=== PATIENT | male | born 1970 | race Caucasian/White ===

== ENCOUNTER 2020-01-07 06:35 | Emergency (ER) | payer OTHER, SELFPAY ==
[2020-01-07 06:48] VITALS: BP 154/102; PULSE 110; RESP 16; TEMP 37; O2SAT 98; BMI 33.4
--- NOTE | 2020-01-07 06:49 | CT_ITS ---
PROCEDURE: CT ABDOMEN PELVIS WO CON CLINICAL INDICATION: kidney stone rule out Left flank pain COMPARISON: No exams were available for comparison TECHNIQUE: Axial images obtained with sagittal and coronal reformats. All CT scans at the facility use one or more dose reduction, viz: automated exposure control, ma/kV adjustment per patient size (including targeted exams where dose is matched to indication, i.e. head), or iterative reconstruction technique. FINDINGS: LOWER THORAX: No acute finding ABDOMEN & PELVIS: Post cholecystectomy. The liver has an unremarkable appearance. Mild nonspecific thickening of the distal esophagus. Vague decreased attenuation within the central aspect of the spleen possibly unopacified vessel. Nonemergent post enhanced exam may confirm. The adrenal glands and pancreas are unremarkable. There is mild left hydronephrosis with minimal prominence of the left ureter in very minimal stranding of the periureteral fat. There does appear to be a tiny stone at the left ureterovesical junction image 91 series 3 measuring approximately 2 mm. No stones evident within the urinary bladder. No renal calculi are identified No intestinal obstruction or free air. No evidence of appendicitis. There is some thickening of the transverse and descending colon which could be due to nondistention. Small diverticulum noted in the splenic flexure region IMPRESSION: 2 mm left ureterovesical junction stone with mild ectasia of the left renal collecting system Thickened appearance of the transverse and descending colon and sigmoid colon which could be due to nondistention or mild colitis Other nonacute findings as described above Dictated by: Shad Brooks MD 01/07/2020 07:37 Electronically signed by Shad Brooks MD in [place] 01/07/2020 07:37
[2020-01-07 06:56] LABS: Basophils % 0.2 % (0.1-2.0); Eosinophils # 0.1 K/mm3 (0.0-0.4); Eosinophils % 0.4 % (0.1-12.0); Hematocrit 49.4 % (42.0-52.0); Hemoglobin 16.9 g/dL (14.1-18.0); Lymphocytes # 0.8 K/mm3 (0.7-4.5); Lymphocytes % 6.3 % (10-50); Mean Corpuscular HGB Conc 34.3 g/dL (31.8-35.4); Mean Corpuscular Volume 90.2 fl (80-94); Mean Platelet Volume 7.2 fl (7.4-10.4); Monocytes # 0.6 K/mm3 (0.1-1.0); Monocytes % 4.5 % (1.7-9.3); Neutrophils # 11.8 K/mm3 (1.8-7.8); Neutrophils % 88.6 % (37.0-80.0); Platelet Count 249 K/mm3 (142-424); Red Blood Count 5.47 M/mm3 (4.60-6.20); Red Cell Distribution Width 13.2 % (11.5-17.5); White Blood Count 13.3 K/mm3 (4.8-10.8)
[2020-01-07 06:59] LABS: MANUAL DIFFERENTIAL MANUAL DIFFERENTIAL (MANUAL DIFF)
[2020-01-07 07:01] LABS: Chloride 106 mmol/L (98-107); Potassium 4.4 mmoL/L (3.5-5.1); Sodium 139 mmol/L (136-145)
[2020-01-07 07:04] LABS: Alanine Aminotransferase 22 U/L (12-78); Albumin Level 4.7 g/dl (3.5-5.0); Albumin/Globulin Ratio 1.4 (1.1-1.8); Alkaline Phosphatase 126 U/L (38-126); Amylase 71 U/L (30-110); Anion Gap 12.4 mEq/L (5-15); Aspartate Amino Transferase 25 U/L (17-59); Bilirubin,Total 0.9 mg/dl (0.2-1.3); Blood Urea Nitrogen 18 mg/dl (9-20); Calcium 9.3 mg/dl (8.4-10.2); Carbon Dioxide 25 mmol/L (22.0-30.0); Creatinine Clearance Estimated 84 mL/min (50-200); Estimated Glomerular Filt Rate 50 ml/min (>60); GFR (African American) 60 ML/MIN (>60); Globulin 3.3 g/dL (1.3-3.2); Glucose 124 mg/dl (74-100); Lipase 91 U/L (23-300)
[2020-01-07 07:07] LABS: Lymphocytes % 4 % (10-50); Monocytes % 5 % (2-9); Neutrophils % 88 % (42-76); Platelet Estimate Normal; RBC Morphology Normal; Total Cells Counted 100
[2020-01-07 07:24] LABS: Appearance,Urine CLEAR (Clear); Bilirubin,Urine Negative (Negative); Blood, Urine TRACE-L (Negative); Color,Urine YELLOW (Yellow); Glucose,Urine (UA) Negative (Negative); Ketones,Urine Negative (Negative); Leukocyte Esterase,Urine Negative (Negative); Microscopic, Urine URINE MICROSCOPIC (MICROSCOPIC); Nitrate,Urine Negative (Negative); PH,Urine 5.5 (5.0-8.5); Protein,Urine Negative (Negative); Specific Gravity, Urine 1.025 (1.005-1.030); Urobilinogen,Urine 0.2 EU/dl (0.2)
[2020-01-07 07:31] LABS: RBC,Urine Occasional #/hpf (0-3)
--- NOTE | 2020-01-07 08:15 | [facility].EDUROGM ---
ED Disposition Clinical Impression: Renal colic on left side Disposition: Home, Self-Care Condition on Discharge: Good Instructions: DI for Kidney Stones Additional Instructions: fluids and see pcp and urology for follow up Prescriptions: Ketorolac Tromethamine [Toradol 10mg tablet] 10 mg PO Q6H 5 Days #10 tab Prescription Printed Referrals: Dion Neri MD [Primary Care Provider] - - Critical Care Critical Care Time: No Attestation: On 01/07/20, the high probability of a clinically significant, sudden or life threatening deterioration of the following system(s) required my full and direct attention, intervention and personal management. The time I documented below is in addition to time spent performing reported procedures but includes the following listed in this critical care notation. Medical Decision Making - Medical Records Medical records reviewed: Yes: I reviewed the patient's medical records. - Hemant Inquiry Pt receiving controlled substance: No Vital Signs: 01/07/20 06:48 Temperature 98.6 F Temperature Source Oral Pulse Rate [Right Brachial] 110 H Respiratory Rate 16 Blood Pressure [Right Arm] 154/102 H Blood Pressure Mean [Right Arm] 119 Blood Pressure Source [Right Arm] Automatic Cuff Blood Pressure Position [Right Arm] Sitting 02 Sat by Pulse Oximetry 98 Oxygen Delivery Method Room Air - Lab Data Lab results reviewed: Yes: I reviewed the patient's lab results. Lab Results 01/07/20 06:49: WBC 13.3 H, RBC 5.47, Hgb 16.9, Hct 49.4, MCV 90.2, MCH 31.0, MCHC 34.3, RDW 13.2, Plt Count 249, MPV 7.2 L, Neut % (Auto) 88.6 H, Lymph % (Auto) 6.3 L, Hill % (Auto) 4.5, Eos % (Auto) 0.4, Baso % (Auto) 0.2, Neut # (Auto) 11.8 H, Lymph # (Auto) 0.8, Hill # (Auto) 0.6, Eos # (Auto) 0.1, Baso # (Auto) 0.0, Total Counted 100, Neutrophils % (Manual) 88 H, Band Neutrophils % 3.0, Lymphocytes % (Manual) 4 L, Monocytes % (Manual) 5, Platelet Estimate Normal, RBC Morphology Normal 01/07/20 06:49: Sodium 139, Potassium 4.4, Chloride 106, Carbon Dioxide 25, Anion Gap 12.4, BUN 18, Creatinine 1.50 H, Estimated Creat Clear 84, Estimated GFR 50 L, Est GFR ( Amer) 60, Glucose 124 H, Calcium 9.3, Total Bilirubin 0.9, AST 25, ALT 22, Alkaline Phosphatase 126, Total Protein 8.0, Albumin 4.7, Globulin 3.3 H, Albumin/Globulin Ratio 1.4, Amylase 71, Lipase 91 01/07/20 07:20: Urine Color Yellow, Urine Appearance Clear, Urine pH 5.5, Ur Specific Sibley 1.025, Urine Protein Negative, Urine Glucose (UA) Negative, Urine Ketones Negative, Urine Blood Trace-l, Urine Nitrate Negative, Urine Bilirubin Negative, Urine Urobilinogen 0.2, Ur Leukocyte Esterase Negative, Urine RBC Occasional, Urine WBC None, Ur Squamous Epith Cells None, Urine Bacteria None Result diagrams: 01/07/20 06:49 01/07/20 06:49 Orders (Tests/Meds): ED MEDICATIONS Generic Name Dose Route Start Last Admin Trade Name Freq PRN Reason Stop Dose Admin Sodium Chloride 1,000 mls @ 999 mls/hr 01/07/20 07:00 01/07/20 06:57 Sod Chlor 0.9% 1000ml Bag IV 01/07/20 08:00 999 mls/hr .Q1H1M KHANG Administration Tamsulosin HCl 0.4 mg 01/07/20 21:00 01/07/20 06:57 Flomax 0.4mg Capsule PO 02/06/20 20:59 0.4 mg HS KHANG Administration Discontinued Medications Generic Name Dose Route Start Last Admin Trade Name Freq PRN Reason Stop Dose Admin Ketorolac Tromethamine 30 mg 01/07/20 06:50 01/07/20 06:56 Toradol 30mg/Ml Vial IV 01/07/20 06:51 30 mg ONCE ONE Administration Ondansetron HCl 4 mg 01/07/20 06:50 01/07/20 06:57 Zofran 4mg/2ml Vial IV 01/07/20 06:51 4 mg ONCE ONE Administration - CT Data CT Scan: Abdomen, Pelvis Time Received: 08:[address] Reviewed: Yes: I have viewed the radiologist's interpretation Preliminary Findings: Abnormal (2 mm stone) Male Urogenital HPI - General Chief complaint: Urogenital-Male Stated complaint: Pain in left side,nausea Time Seen by Provider: 01/07/20 07:40 M
[2020-01-07 08:16] VITALS: BP 153/100; PULSE 59
[2020-01-07 08:29] VITALS: BP 159/83; PULSE 60; RESP 16; TEMP 36.6; O2SAT 98
== END 2020-01-07 08:31 | disposition home or self-care (01) ==
PROVIDERS: Emergency Provider Emergency Medicine; PCP Internal Medicine Adolescent Medicine
DX: N23 Unspecified renal colic (principal); Z87.442 Personal history of urinary calculi
CPT/HCPCS: 74176; 80053; 81001; 82150; 83690; 85007; 85025; 96365; 96375; 99283; J2405

== ENCOUNTER → 2022-10-28 11:43 | Outpatient (CLI) | payer BC, SELFPAY ==
--- NOTE | 2022-10-28 | XR_ITS ---
FINAL REPORT CLINICAL HISTORY: Hx kidney stones, Rt flank pain x 5-6 wks radiating to back. FINDINGS: AP PELVIS: A single view of the pelvis was obtained. There is no acute fracture or dislocation. Visualized joint spaces are normally aligned. Soft tissues are unremarkable. IMPRESSION: No acute process. Reviewed, Interpreted and Dictated by Ovi Zambrano III, MD Transcribed by Tung Santo [facility]henticated and [facility]
--- NOTE | 2022-10-28 | XR_ITS ---
FINAL REPORT CLINICAL HISTORY: Hx kidney stones, Rt flank pain x 5-6 wks radiating to back. FINDINGS: There is a nonobstructive bowel gas pattern. There are no abnormally dilated loops of small bowel. No abnormal calcification is identified. Postoperative changes are seen in the right upper quadrant. IMPRESSION: Nonobstructive bowel gas pattern. Reviewed, Interpreted and Dictated by Ovi Zambrano III, MD Transcribed by Tung Santo Authenticated and [facility]
== END ==
PROVIDERS: PCP Nurse Practitioner Family; Visit Provider Nurse Practitioner
DX: R10.9 Unspecified abdominal pain (principal)
CPT/HCPCS: 72170; 74018

== ENCOUNTER 2023-06-03 17:29 | Emergency (ER) | payer OTHER, BC, SELFPAY ==
--- NOTE | 2023-06-03 17:31 | XR_ITS ---
PROCEDURE INFORMATION: Exam: XR Right Knee Exam date and time: 06/03/2023 5:46 PM Age: 53 years old Clinical indication: Injury or trauma; Fall; Blunt trauma; Knee; Right TECHNIQUE: Imaging protocol: Radiologic exam of the right knee. Views: 3 views. COMPARISON: No relevant prior studies available. FINDINGS: Bones/joints: Small suprapatellar effusion Soft tissues: Radiopaque foreign body in the soft tissues superficial to the medial femoral condyle. IMPRESSION: 1. No evidence of acute osseous injury. 2. Small suprapatellar effusion.
[2023-06-03 18:40] VITALS: BP 142/90; PULSE 86; RESP 18; TEMP 36.8; O2SAT 98; BMI 33.4
--- NOTE | 2023-06-03 18:56 | EXP.UTC ---
Discharge Plan Disposition Patient Disposition: Home, Self-Care Condition: Good Prescriptions Prescriptions: No Action ipratropium-albuterol 0.5 mg-3 mg(2.5 mg base)/3 mL solution for nebulization 1 inh IH Q6H Patient Comments: INHALE CONTENTS OF 1 VIAL USING A NEBULIZER 3 TIMES EACH DAY NEEDED budesonide-formoterol 160-4.5 mcg/actuation HFA aerosol inhaler 1 puff IH Q6H Patient Comments: INHALE 2 PUFFS 2 TIMES EACH DAY ketorolac 10 MG tablet 10 mg PO Q6H 5 Days Qty: 10 0RF Referrals Follow up/Referrals: Flash Steven DO [Staff Physician] - See instructions (Call office for appointment) Darcie Aldana [Primary Care Provider] - See instructions Clinical Impressions Clinical Impression: Effusion of knee Qualifiers: Laterality: right Qualified Code(s): M25.461 - Effusion, right knee Instructions Patient Instructions: How to Use Crutches, DI for Knee Effusion, How to Use a Knee Immobilizer Discharge ED Provider: Mary Carmen Anderson [facility] General Stated complaint: WC fall 06/03, right knee pain Mode of Arrival: Ambulatory Source of Information: Patient Limitations: No Limitations Time Seen by Provider: 06/03/23 18:56 Description of Symptoms (Recalled from Triage Doc. by RN): PATIENT C/O RIGHT KNEE PAIN AFTER FALLING OFF OF A LADDER APPROX 3 FEET TODAY HEENT Symptoms (Recalled from RN notes): No Resp Symptoms (Recalled from RN notes): No Skin Symptoms (Recalled from RN notes): No MS Symptoms (Recalled from RN notes): Yes Functional Status (Recalled from RN notes): WNL History of Present Illness Provider Complaint: Patient states that he was on the ladder earlier and slipped and fell and landed on his right knee, hip and shoulder States that he is not hurting in his hip and shoulder but his knee is swollen and hurting when he moves it or puts weight on it so he came in to get it checked Related Data Home Medications Medication Instructions Recorded Confirmed budesonide-formoterol HFA 160 1 puff IH Q6H Breathing problems 01/07/20 01/07/20 mcg-4.5 mcg/actuation aerosol inhaler ipratropium 0.5 mg-albuterol 3 mg 1 inh IH Q6H Breathing problems 01/07/20 01/07/20 (2.5 mg base)/3 mL nebulization soln Previous Rx's Medication Instructions Recorded ketorolac 10 mg tablet 10 mg PO Q6H 5 days #10 tabs 01/07/20 Allergies Allergy/AdvReac Type Severity Reaction Status Date / Time aspirin Allergy Severe S-DIFF. Verified 01/07/20 06:51 BREATHING Sulfa (Sulfonamide Allergy Verified 06/03/23 18:51 Antibiotics) Worker's Comp Is this a Worker's Comp case?: No [facility] Disclaimer: The information contained in this section may have been updated after the patient was seen, as this information can be updated by other users. Medical History (Updated 06/03/23 @ 19:06 by Mary Carmen Anderson APRN) Anxiety Asthma COPD (chronic obstructive pulmonary disease) Hypertension Kidney stone Social History Smoking Status: Unknown if ever smoked alcohol intake: never current occupational status: employed Travel in the last 8 weeks: None ROS Obtained: Yes All systems reviewed & no additional complaints except as documented and Yes Systems reviewed as appropriate & no additional complaints except as documented Constitutional Constitutional: Reports system reviewed and no additional complaints, except as documented and Reports as per HPI Cardiovascular Cardiovascular: Reports system reviewed and no additional complaints, except as documented and Reports as per HPI Respiratory Respiratory: Reports system reviewed and no additional complaints, except as documented and Reports as per HPI Gastrointestinal Gastrointestingal: Reports system reviewed and no additional complaints, except as documented and as per HPI Musculoskeletal Musculoskeletal: Reports system reviewed and no additional complaints, except as documented and Reports as per HPI Comments: Pain and swe
[2023-06-03 19:10] VITALS: BP 142/90; PULSE 86; RESP 18; TEMP 36.8; O2SAT 98
== END 2023-06-03 19:16 | disposition home or self-care (01) ==
PROVIDERS: Emergency Provider Nurse Practitioner; PCP Nurse Practitioner Family
DX: M25.561 Pain in right knee (principal); M25.461 Effusion, right knee; J44.9 Chronic obstructive pulmonary disease, unspecified; I10 Essential (primary) hypertension; W11.XXXA Fall on and from ladder, initial encounter
CPT/HCPCS: 73562; 99204; 99212; G0463